=== PATIENT | female | born 1970 | race Caucasian/White ===

== ENCOUNTER 2021-10-17 08:12 | Emergency (ER) | payer BC, SELFPAY ==
[2021-10-17] VITALS (18 sets, daily range): BP systolic 148–184; BP diastolic 72–119; PULSE 83–113; RESP 14–19; TEMP 36.3–36.6; O2SAT 95–99
--- NOTE | 2021-10-17 08:15 | RT.EKG_ITS ---
APPROVED REPORT Exam: Resting ECG Reason for Exam: high blood pressure Patient Location: E HR:105 bpm ECG Measurements Heart Rate 105 AXIS HI 149 P 58 QRSd 87 QRS 22 QT 385 T 42 QTc 509 Conclusion Sinus tachycardia...rate> 99. Sinus. Normal axis. No STEMI. I have reviewed and interpreted ECG and agree with software generated interpretation.
--- NOTE | 2021-10-17 08:30 | DI.CT_ITS ---
Exam(s) CT HEAD WO EXAM: CT HEAD WO CLINICAL HISTORY: htn/andrade. TECHNIQUE: Imaging Protocol: Axial computed tomography images with coronal and sagittal reformatted images were created and reviewed COMPARISON: No exams were available for comparison FINDINGS: Ventricles and Extra axial spaces: Normal in size and morphology for the patient's age. Hemorrhage: None. Cerebral parenchyma: Normal. Midline shift: None. Brainstem/Cerebellum: Normal. Calvarium: Normal. Visualized Paranasal sinuses/Mastoids: Clear. Soft Tissues: Unremarkable. IMPRESSION: No acute intracranial process. RADIATION DOSE DELIVERED: 704.68mGy.cm Total DLP DATA REPOSITORY: All CT scans at this facility are submitted to the National Radiology Data Registry (NRDR) Dose Index Registry (DIR) with the [employer] (ACR). RADIATION OPTIMIZATION: All CT scans at this facility use at least one of these dose optimization te chniques: automated exposure control; mA and/or kV adjustment per patient size (includes targeted exa ms where dose is matched to clinical indication); or iterative reconstruction.
--- NOTE | 2021-10-17 08:30 | DI.RAD_ITS ---
Exam(s) XR CHEST 2V PA LATERAL EXAM: XR CHEST 2V PA LATERAL CLINICAL HISTORY: shakey, htn TECHNIQUE: 2D digital imaging was performed. COMPARISON: No exams were available for comparison FINDINGS: MEDIASTINUM: Normal. HEART: Normal. PULMONARY VASCULATURE: Normal. LUNGS: Clear. PLEURAL SPACE: No pleural effusion or pneumothorax. BONE:Unremarkable for age. IMPRESSION: No acute abnormality. DATA REPOSITORY: RADIATION DOSE DELIVERED:
--- NOTE | 2021-10-17 08:42 | ED.GENADUL_ITS ---
Discharge Plan Disposition Patient Disposition: HOME Condition: Improving Discharge Details Clinical Impression: Hypertension, Hypokalemia, Cephalgia Primary Care Provider: Jane,Local ED Provider: Greg Huertas Home Meds and New Rx's Prescriptions: New atenolol 25 mg tablet 25 mg PO DAILY Qty: 14 0RF gabapentin 600 mg tablet 600 mg PO TID 14 Days Qty: 42 0RF lisinopril-hydrochlorothiazide 20-25 mg tablet 1 tab PO DAILY Qty: 14 0RF Held lisdexamfetamine 20 mg Capsule 20 mg PO DAILY 0RF Hold Instructions: Resume on 10/31/21. Talk with PCP at follow up appointment Discontinued gabapentin 600 mg Tablet 600 mg PO TID 0RF atenolol 25 mg Tablet 25 mg PO DAILY 0RF lisinopril-hydrochlorothiazide 20-25 mg Tablet 1 tab PO DAILY 0RF Discharge Instructions Instructions: Hypokalemia (ED), Hypertension (ED), General Headache (ED) Additional Instructions: Your heart rate and blood pressure responded nicely to the IV medication here and you no longer feel as though your heart rate is fast or have a headache. I have placed you on the care management list to help expedite outpatient primary care follow-up in the next 2 weeks, and in the meantime have provided you with 2 weeks worth of your current medications. Please watch for new or worsening symptoms and return to the ER for any concerns. I also supplemented your potassium, I do recommend that you are sure to have food rich in potassium such as bananas, and also have electrolyte drinks. As we discussed if your potassium remains low once you follow-up with your primary care provider you may need to be placed onto a potassium supplement. Discharge Data Discharge Date/Time-TO BE ENTERED AT DEPARTURE: 10/17/21 11:55 Medical Decision Making This is a 51-year-old female who reports that she moved here from [place], does not have a primary care doctor, and ran out of her medications approximately 1 month ago. She reports increased stress, new job, recent divorce, recent passing of her sister, she has been sleeping well, etc. Over the past 4 days she feels as though her heart rate has been faster than usual, shaky, concern that her blood pressure is high. She took her blood pressure at work the other day and it was elevated but cannot recall the exact number. Patient report headaches that are present nearly every day for a very long time, has been seen by a neurologist in the past, and is not currently on any migraine regimen. She denies recent illness or trauma. Denies striking her head, fever, visual changes, chest pain, shortness of breath, bowel or bladder incontinence. Clinically she appears slightly anxious, blood pressure of 179/99, and pulse of 113. She is unsure of her exact dosage of medications but does state that she is on a beta-rosmery. Plan is to initiate IV access, cardiac work-up, CT of her head, and I will give 10 IV of labetalol. While this simply could be secondary to increased stress, noncompliance of medication, etc. I would like to rule out CVA, ACS, PE, thyroid disease, etc. Patient is co mfortable with this plan and has no additional questions or concerns. I will also place her on the care management list to help expedite outpatient primary care follow-up. Lastly, I will obtain records from her PCP in [place]. Laboratory values reveal potassium of 2.9 magnesium of 1.7. Otherwise laboratory values are unremarkable. Will provide both oral and IV potassium as well as oral magnesium supplementation. Heart rate is now in the 80s, blood pressure is trending downward after the initial dose of 10 IV labetalol. She report that the fast heart rate has resolved completely and her headache is decreasing. Plan is to give a second dose of 10 IV labetalol Upon reevaluation patient is now asymptomatic. We were able to obtain records from [place] and document her medications, it would appear as though she has discontinued any medication for anxiety and/or depression as she did not like the way it made her feel. CT imaging of brain and chest x-ray are unremarkable Heart rate remains in the 80s, blood pressure continues to trend downward nicely. She remains asymptomatic. Work-up did not reveal any obvious emergent process. We did discuss herbie her potassium and magnesium. She states that she was told in the past that her potassium was low but was never started on any oral supplementation. I have placed her on the care management list to help expedite outpatient primary care provider in the next 2 weeks and I will provide her a refill of her prescriptions for the next 2 weeks. Strict discharge and return precautions were provided. This documentation was generated using [employer] system, please disregard any oddities of phrase or misspellings. Medical Records Medical records reviewed: Yes I reviewed the patient's medical records. Imaging Data Radiologic Study: Attestation: I personally reviewed and interpreted this imaging study as follows: Imaging: CT Scan Radiologist's impression: Exam(s) CT HEAD WO EXAM: CT HEAD WO CLINICAL HISTORY: htn/washington. TECHNIQUE: Imaging Protocol: Axial computed tomography images with coronal and sagittal reformatted images were created and reviewed COMPARISON: No exams were available for comparison FINDINGS: Ventricles and Extra axial spaces: Normal in size and morphology for the patient's age. Hemorrhage: None. Cerebral parenchyma: Normal. Midline shift: None. Brainstem/Cerebellum: Normal. Calvarium: Normal. Visualized Paranasal sinuses/Mastoids: Clear. Soft Tissues: Unremarkable. IMPRESSION: No acute intracranial process. Radiologic Study #2: Attestation: I personally reviewed and interpreted this imaging study as follows: Imaging: X-Ray Radiologist's impression: Exam(s) XR CHEST 2V PA LATERAL EXAM: XR CHEST 2V PA LATERAL CLINICAL HISTORY: shakey, htn TECHNIQUE: 2D digital imaging was performed. COMPARISON: No exams were available for comparison FINDINGS: MEDIASTINUM: Normal. HEART: Normal. PULMONARY VASCULATURE: Normal. LUNGS: Clear. PLEURAL SPACE: No pleural effusion or pneumothorax. BONE:Unremarkable for age. IMPRESSION: No acute abnormality. Lab Data Lab results reviewed: Yes I reviewed the patient's lab results. Labs: Laboratory Tests Range/Units 10/17/21 10/17/21 10/17/21 08:25 08:25 08:55 WBC (4.4-10.8) 10^3/uL 8.13 RBC (3.93-5.22) 10^6/uL 4.04 Hgb (11.2-15.7) g/dL 12.9 Hct (36.0-46.0) % 38.7 MCV (80-95) fL 95.8 H MCH (27.0-33.0) pg 31.9 MCHC (32.0-36.0) % 33.3 RDW (11.7-14.6) % 15.3 H Plt Count (130-400) 10^3/uL 329 MPV (8.0-11.0) fL 8.8 Immature Gran % 0.5 Neutrophils % 67.0 Lymphocytes % 24.6 Monocytes % 6.3 Eosinophils % 1.2 Basophils % 0.4 Nucleated RBC % % 0 Absolute Neutrophils (1.2-6.7) 10^3/uL 5.45 Absolute Lymphocytes (1.2-3.4) 10^3/uL 2.00 Absolute Monocytes (0.1-0.8) 10^3/uL 0.51 Absolute Eosinophils (0.0-0.7) 10^3/uL 0.10 Absolute Basophils (0.0-0.2) 10^3/uL 0.03 PT (9.3-11.0) sec 9.4 INR (0.9-1.1) 0.9 APTT (21.0-27.5) sec 19.6 L D-Dimer (<500) ng/mlFEU 288 Sodium (136-145) mmol/L 141 Potassium (3.5-5.1) mmol/L 2.9 L Chloride (98-107) mmol/L 104 Carbon Dioxide (21.0-32.0) mmol/L 27.3 Anion Gap (3-11) mmol/L 9.7 BUN (7-18) mg/dL 9 Creatinine (0.55-1.02) mg/dL 0.9 Estimated GFR/1.73 m2 (mL/min/1.73m2) >= 60.00 Glucose (74-106) mg/dL 106 Calcium (8.5-10.1) mg/dL 8.7 Magnesium (1.8-2.4) mg/dL 1.7 L Total Bilirubin (0.2-1.0) mg/dL 0.3 AST (15-37) U/L 28 ALT (14-59) U/L 21 Alkaline Phosphatase (46-116) U/L 98 Troponin I (<or=60) ng/L < 50 Total Protein (6.4-8.2) g/dL 7.6 Albumin (3.4-5.0) g/dL 3.8 TSH (0.36-3.74) uIU/mL 3.44 ECG Data Attestation: I personally reviewed and interpreted this ECG (s) as follows: Interpretation: Please see official report by Dr. Hodges. Sinus tachycardia, ventricular rate of 105, no STEMI HPI General Mode of arrival: ambulatory . Date/Time Provider Initiated Documentation: 10/17/21 08:14 . Limitations to Documentation: no limitations . Information obtained by: patient . History of Present Illness 51 year old F presents to the emergency department with the chief complaint of [place], shakey, HTN, described as moderate, with intensity rated at 6. Quality is described as aching, and is localized to the head. Patient reports no radiation. Patient started experiencing this day(s) (4) and it has been constant. No exacerbating factors reported . Patient notes headaches. Patient did receive the following treatments prior to arrival, none and other (has not taken any of her meds in 1 month) Related Data Home Medications Medication Instructions Recorded Confirmed atenolol 25 mg tablet 25 mg PO DAILY #14 tab 10/17/21 gabapentin 600 mg tablet 600 mg PO TID 14 Days #42 tab 10/17/21 lisdexamfetamine 20 mg capsule 20 mg PO DAILY 10/17/21 10/17/21 lisinopril 20 1 tab PO DAILY #14 tab 10/17/21 mg-hydrochlorothiazide 25 mg tablet Previous Rx's Medication Instructions Recorded atenolol 25 mg tablet 25 mg PO DAILY #14 tab 10/17/21 gabapentin 600 mg tablet 600 mg PO TID 14 Days #42 tab 10/17/21 lisinopril 20 1 tab PO DAILY #14 tab 10/17/21 mg-hydrochlorothiazide 25 mg tablet Allergies Allergy/AdvReac Type Severity Reaction Status Date / Time No Known Allergies Allergy Unverified 10/17/21 08:23 General Stated Complaint: GenMedical MUKUND: 2 Review of Systems Constitutional Constitutional: Denies fatigue, Denies fever(s), Denies headache(s) and Denies weakness Eyes Eyes: Denies change in vision ENT Ears, Nose, Mouth, and Throat: Denies headache(s) and Denies neck pain Cardiovascular Cardiovascular: Denies chest pain and Denies dyspnea Respiratory Respiratory: Denies cough and Denies dyspnea Gastrointestinal Gastrointestinal: Denies abdominal pain, Denies nausea and Denies vomiting Musculoskeletal Musculoskeletal: Reports back pain (chronic), Denies neck pain, Denies numbness and Denies tingling Integumentary/Breasts Skin/Breast: Denies rash Neurologic Neurologic: Denies headache(s), Denies numbness, Denies tingling and Denies weakness Psychiatric Psychiatric: Reports other (increased stress) Endocrine Endocrine: Denies fatigue PFSH All Active Problems (Updated 10/17/21 @ 11:23 by DANIEL Meyers) Hypertension (Chronic) Hypokalemia (Acute) Cephalgia (Acute) Social History Smoking/Tobacco Use Status: Never Smoking risk assessment performed?: Yes Alcohol Intake: current Alcohol Intake frequency: a few times a week Drug use: Never Do you feel safe at home: Yes Do you feel safe in your relationship?: Yes Exam Const General: cooperative, healthy appearing, comfortable, no acute distress and anxious Orientation: alert, awake and oriented x3 [facility] Head: normal to inspection, normocephalic and atraumatic Face and sinus: normal facial exam Mouth: moist mucous membranes Eyes General: appearance normal, both eyes and all related structures Conjunctivae: conjunctivae normal Neck Neck: normal visual inspection, full ROM, no meningeal signs, trachea midline and supple Resp Effort & Inspection: normal respiratory effort and able to speak in complete sentences Auscultation: clear to auscultation bilaterally Cardio Rate: tachycardic (108) Rhythm: regular rhythm GI Palpation: soft, no pulsatile masses and nontender Back/Spine/Pelvis Back: No back tenderness Skin General skin exam: no rashes or lesions noted Neuro General: patient alert, patient awake, patient oriented x3, moves all extremities and no focal motor deficits Cranial Nerves: CN's II-XI intact bilaterally Cognition: normal cognition Speech: speech normal Gait: normal gait Motor: muscle tone normal throughout Sensory Exam: no sensory deficits noted Extrem General: normal to inspection, full ROM, capillary refill normal, no pedal edema and no calf tenderness Psych Appearance: grossly normal Mental Status: mental status grossly normal Course Vital Signs Vital signs: Vital Signs Temperature 36.3 C L 10/17/21 08:17 Pulse 113 H 10/17/21 08:17 Respiratory Rate 18 10/17/21 08:17 Blood Pressure 179/99 H 10/17/21 08:17 Pulse Oximetry 99 10/17/21 08:17 Temperature 36.3 C L 10/17/21 08:17 Temperature Source Temporal Artery Scan 10/17/21 08:17 Pulse 111 H 10/17/21 08:21 Pulse 113 H 10/17/21 08:21 Respiratory Rate 15 10/17/21 08:21 Respiratory Effort Non-Labored 10/17/21 08:31 Respiratory Depth Normal 10/17/21 08:31 Respiratory Pattern Normal 10/17/21 08:31 Blood Pressure 179/99 H 10/17/21 08:21 Blood Pressure Mean 119 10/17/21 08:21 Blood Pressure Position Supine 10/17/21 08:17 Pulse Oximetry 99 10/17/21 08:21 Oxygen Delivery Method Room Air 10/17/21 08:17 Oxygen Flow Rate 0 10/17/21 08:17 Pain Level 7 10/17/21 08:17 PAWSS Have you Been Recently Intoxicated or Drunk Within the Last 30 days?: No Have you Ever Experienced Previous Episodes of Alcohol Withdrawal?: No Have you ever Experienced Withdrawal Seizures?: No Have you ever Experienced Delirium Tremens(DT)s?: No Have you ever undergone Alcohol Rehabilitation Treatment (i.e, inpt ot outpatient treatment programs)?: No Have you ever Experienced Blackouts?: No Have you ever Combined Alcohol with other Downers within the last 90 days?: No Have you ever Combined Alcohol with any other Substance of Abuse during the last 90 days?: No Positive Blood Alcohol level on Presentation? [PCS.BAL]: No Evidence of Increased Autonomic Activity (i.e. HR>120, tremor, sweating, agitation, nausea)?: No Result: 0
[2021-10-17 09:01] LABS: Abs Immature Grans 0.04 10^3/uL (0.0-0.06); Absolute Basophil Count 0.03 10^3/uL (0.0-0.2); Absolute Monocyte Count 0.51 10^3/uL (0.1-0.8); Absolute Neutrophil Count 5.45 10^3/uL (1.2-6.7); Basophils % 0.4; Eosinophils % 1.2; HCT 38.7 % (36.0-46.0); HGB 12.9 g/dL (11.2-15.7); Immature Grans % 0.5; Lymphocytes % 24.6; MCH 31.9 pg (27.0-33.0); MCHC 33.3 % (32.0-36.0); MCV 95.8 fL (80-95); MPV 8.8 fL (8.0-11.0); Monocytes % 6.3; Nucleated RBC 0 %; Platelet Count 329 10^3/uL (130-400); RBC 4.04 10^6/uL (3.93-5.22); RDW 15.3 % (11.7-14.6); RDW-SD 52.6 fL; WBC 8.13 10^3/uL (4.4-10.8)
[2021-10-17 09:17] LABS: INR 0.9 (0.9-1.1); PTT Activated 19.6 sec (21.0-27.5); Prothrombin Time 9.4 sec (9.3-11.0)
[2021-10-17 09:25] LABS: ALT 21 U/L (14-59); AST 28 U/L (15-37); Albumin 3.8 g/dL (3.4-5.0); Alkaline Phosphatase 98 U/L (46-116); Anion Gap 9.7 mmol/L (3-11); BUN 9 mg/dL (7-18); Bilirubin, Total 0.3 mg/dL (0.2-1.0); CO2 27.3 mmol/L (21.0-32.0); CREATININE 0.9 mg/dL (0.55-1.02); Calcium 8.7 mg/dL (8.5-10.1); Chloride 104 mmol/L (98-107); Glucose 106 mg/dL (74-106); Magnesium 1.7 mg/dL (1.8-2.4); Sodium 141 mmol/L (136-145); TSH (W/Ref FT4) 3.44 uIU/mL (0.36-3.74); Total Protein 7.6 g/dL (6.4-8.2); Troponin I < 50 ng/L (<or=60)
[2021-10-17 09:26] LABS: Potassium 2.9 mmol/L (3.5-5.1)
--- NOTE | 2021-10-17 09:31 | NUR.NOTE ---
Nursing Note: Referral given to Care Management patient needs PCP, to establish care/needs medications renewed,filled. within 1 week. Devi Engle
[2021-10-17 09:37] LABS: D-Dimer 288 ng/mlFEU (<500)
[2021-10-17] MEDS: Labetalol 100 MG/20 ML VIAL 10 MG IVP ×2 (09:43→10:35)
[2021-10-17] MEDS: Potassium Chloride 20 MEQ TABCR 40 MEQ PO (09:43)
[2021-10-17] MEDS: Magnesium Oxide 400 MG TAB 800 MG PO (09:43)
[2021-10-17] MEDS: POTASSIUM CHLORIDE 10 MEQ/100 ML BAG 100 MEQ IVPB (09:44)
--- NOTE | 2021-10-17 09:57 | NUR.NOTE ---
Addendum entered by Devi Engle 10/17/21 17:00: Chart summary from PCP in [place] will be scanned into patient record. Devi Engle Original Note: Nursing Note: [facility]; [place], [place]; [phone]. Devi Engle
--- NOTE | 2021-10-18 14:19 | CMACTNOTE_ITS ---
- If Service Date Differs Date of service: 10/18/21 Time of Service: 14:19 Care Management Activity Note Lilian is seen in the ED for hypertension, hypokalemia, and cephalgia. At the request of ED provider, FAISAL coordinates a referral to Sissy Bhagat MD, of [facility], on-call provider, to assist Lilian in obtaining a follow up appointment and in establishing care with a PCP. She has BCBS for insurance.
== END 2021-10-17 11:55 | disposition home or self-care (01) ==
PROVIDERS: Emergency Provider Physician Assistant
DX: I10 Essential (primary) hypertension (principal); R51.9 Headache, unspecified; E87.6 Hypokalemia; Z91.14 Patient's other noncompliance with medication regimen
CPT/HCPCS: 36415; 80053; 93005; 96365; 96375; 96376; 99285; 70450; 71046; 83735; 84443; 84484; 85025; 85379; 85610; 85730; 93010; 99284; J3480